=== PATIENT | male | born 1955 | race Caucasian/White ===

== ENCOUNTER 2023-10-04 14:17 | Emergency (ER) | payer OTHER, SELFPAY ==
--- NOTE | ~2023-10-04 | XR_ITS ---
EXAMINATION: XR CHEST CLINICAL INFORMATION: Shortness of breath COMPARISON: None available. TECHNIQUE: Frontal view of the chest was obtained. FINDINGS: Evidence of previous cardiac surgery. No significant abnormality is noted involving the heart, lungs, mediastinum, bony thorax or soft tissues. XR/XR chest 1V IMPRESSION: Unremarkable examination.
--- NOTE | 2023-10-04 14:22 | ECG_ITS ---
Test Reason : PAIN Blood Pressure : / mmHG Vent. Rate : 070 BPM Atrial Rate : 070 BPM P-R Int : 150 ms QRS Dur : 068 ms QT Int : 408 ms P-R-T Axes : 046 019 102 degrees QTc Int : 440 ms Normal sinus rhythm Abnormal QRS-T angle, consider primary T wave abnormality Abnormal ECG No previous ECGs available Referred By: Zeus Street Electronically Signed By:Manjeet Acosta
[2023-10-04 14:50] LABS: MANUAL DIFF FLAG NO
[2023-10-04 14:51] LABS: Basophils Percent Auto 0.2 % (0-2); Eosinophils Absolute Auto 0.5 X10*3/uL (0.0-0.4); Eosinophils Percent Auto 4.4 % (0-4); Hematocrit 43.5 % (42.0-52.0); Hemoglobin 14.5 g/dl (14.0-18.0); Imm Gran Abs Auto 0.03 X10*3/uL (0.00-0.03); Imm Gran Pct Auto 0.3 % (0.0-0.4); Lymphocytes Absolute Auto 1.7 X10*3/uL (1.2-4.9); Lymphocytes Percent Auto 16.7 % (20-40); Mean Corpuscular HGB Conc 33.3 g/dl (31.0-36.0); Mean Corpuscular Hemoglobin 30.6 pg (27.0-33.0); Mean Corpuscular Volume 91.8 fL (80.0-98.0); Mean Platelet Volume 11.8 fL (9.4-12.4); Monocytes Absolute Auto 0.7 X10*3/uL (0.1-1.2); Monocytes Percent Auto 6.6 % (2-11); Neutrophils Absolute Auto 7.3 x10*3/uL (2.0-8.3); Neutrophils Percent Auto 71.8 % (45-73); Platelet Count 176 X10*3/uL (160-400); Red Blood Count 4.74 X10*6/uL (4.60-5.80); Red Cell Distribution Width 13.1 % (11.0-16.0); White Blood Count 10.2 X10*3/uL (4.8-10.8)
[2023-10-04 14:57] VITALS: BP 166/81; PULSE 76; RESP 18; TEMP 36.5; O2SAT 97; BMI 31.9
[2023-10-04 14:57] LABS: INTERNATIONAL NORM RATIO 0.9 (0.9-1.1); Prothrombin Time 11.4 SEC (11.1-13.3)
[2023-10-04 15:13] LABS: B Type Natriuretic Peptide 19 pg/mL (<100)
[2023-10-04 15:14] LABS: Troponin-I High Sensitivity 3.1 ng/L (<3.5-35.0)
[2023-10-04 15:15] LABS: Alanine Aminotransferase 20 U/L (0-40); Alkaline Phosphatase 101 U/L (39-117); Anion Gap 15 (12-20); Aspartate Amino Transferase 20 U/L (5-37); Bilirubin Total 0.6 mg/dL (0.0-1.0); Blood Urea Nitrogen 21 mg/dL (9-16); Calcium 10.1 mg/dL (8.4-10.2); Carbon Dioxide 29 mmol/L (22-29); Chloride 100 mmol/L (96-108); Creatinine Clr Calc Pharmacy 57.5; Estimated Glomerular Filt Rate 53; Glucose Random 108 mg/dL (60-115); Lipase 35 U/L (8-78); Potassium 5.3 mmol/L (3.3-5.1); Sodium 139 mmol/L (135-145); Total Protein 7.9 g/dL (6.5-8.0)
--- NOTE | 2023-10-04 20:21 | ED.CHESTPAIN ---
HPI - Chest Pain General Chief Complaint: Chest Pain Stated Complaint: Chest pain, dizziness Time Seen by Provider: 10/04/23 20:18 Source: patient and family Mode of arrival: ambulatory Limitations: no limitations History of Present Illness HPI narrative: Patient history of hypertension coronary disease status post CABG complaining of right-sided chest discomfort with nonspecific dizziness since yesterday fell lightheaded whenever he stands up no shortness a breath was feeling very nauseated on arrival no vertiginous feeling no shortness a breath Related Data Previous Rx's ?Medication ?Instructions ?Recorded ondansetron 4 mg disintegrating 4 mg PO Q6-8H PRN nausea and 10/04/23 tablet vomiting #7 tabs Allergies Allergy/AdvReac Type Severity Reaction Status Date / Time No Known Allergies Allergy Verified 10/04/23 15:00 Review of Systems Review of Systems: Yes all other systems are reviewed and are negative [facility] Past Medical History Medical History (Updated 10/04/23 @ 23:58 by Kwaku Judd MD) Hypertension Surgical History (Updated 10/04/23 @ 23:54 by Kwaku Judd MD) Hx of CABG Social History Social History Smoked in Last 30 Days: No Use of substances other than those prescribed or required for medical reasons: No Advance Directives: Yes Advance Directives Information Provided: Yes Advance Directives on File: No Do you have a plan to hurt others: No Plan Physical Exam Vital Signs: Vital Signs: Last Vital Signs Temp 98.7 F 10/04/23 21:26 Pulse 76 10/04/23 22:56 Resp 16 10/04/23 22:56 BP 160/90 H 10/04/23 22:56 Pulse Ox 97 10/04/23 22:56 O2 Del Method Room Air 10/04/23 22:56 BMI result Body Mass Index 31.9 Appearance: Alert. Oriented X3. No acute distress. Eyes: PERRLA, No Nystagmus ENT: Pharynx normal. Oral Mucosa moist Neck: Normal inspection. Neck supple. CVS: Normal heart rate and rhythm. Pulses normal. Respiratory: No respiratory distress. Equal air entry bilateral, no wheezing/rales/rhonchi Abdomen: Soft and nontender. Bowel sounds are present, no mass palpable, no CVA tenderness Skin: Skin warm and dry. Normal skin color. Normal skin turgor. Extremities: No lower extremity edema. No calf tenderness Neuro: Oriented X 3. No motor deficit. No sensory deficit.No cerebellar signs , cranial nerves II-XII intact Medications Administered Discontinued Medications Generic Name Dose Route Start Last Admin Trade Name Freq PRN Reason Stop Dose Admin Ondansetron HCl 4 mg 10/04/23 21:06 10/04/23 21:35 Ondansetron Hcl 4 Mg/2 Ml Vial IVPUSH 10/04/23 21:07 4 mg ONCE ONE Administration Medical Decision Making Medical Decision Making [facility] Narrative: Patient with nonspecific dizziness with nausea workup since soon stable no orthostatic hypotension patient was given Zofran for nausea and feel much better after that will discharge patient home on Zofran patient was also given local no for high potassium Lab Data [facility] Lab Attestation statement: I reviewed the patient's lab results. 10/04/23 14:45 10/04/23 14:45 Labs: Lab Results 10/04/23 10/04/23 Range/Units 14:45 20:31 WBC 10.2 (4.8-10.8) X10*3/uL RBC 4.74 (4.60-5.80) X10*6/uL Hgb 14.5 (14.0-18.0) g/dl Hct 43.5 (42.0-52.0) % MCV 91.8 (80.0-98.0) fL MCH 30.6 (27.0-33.0) pg MCHC 33.3 (31.0-36.0) g/dl RDW 13.1 (11.0-16.0) % Plt Count 176 (160-400) X10*3/uL MPV 11.8 (9.4-12.4) fL Immature Gran % (Auto) 0.3 (0.0-0.4) % Neut % (Auto) 71.8 (45-73) % Lymph % (Auto) 16.7 L (20-40) % [place] % (Auto) 6.6 (2-11) % Eos % (Auto) 4.4 H (0-4) % Baso % (Auto) 0.2 (0-2) % Lymph # (Auto) 1.7 (1.2-4.9) X10*3/uL [place] # (Auto) 0.7 (0.1-1.2) X10*3/uL Eos # (Auto) 0.5 H (0.0-0.4) X10*3/uL Baso # (Auto) 0.0 (0.0-0.2) X10*3/uL Abs Immat Gran (auto) 0.03 (0.00-0.03) X10*3/uL Absolute Neuts (auto) 7.3 (2.0-8.3) x10*3/uL Absolute Nucleated RBC 0.000 (0.0-0.012) X10*3/uL Nucleated RBC % (auto) 0.0 (0.0-0.2) /100WBC PT 11.4 (11.1-13.3) SEC INR 0.9 (0.9-1.1) Sodium 139 (135-145) mmol/L Potassium 5.3 H (3.3-5.1) mmol/L Chloride 100 (96-108) mmol/L Carbon Dioxide 29 (22-29) mmol/L Anion Gap 15 (12-20) BUN 21 H (9-16) mg/dL Creatinine 1.33 (0.5-1.4) mg/dL Estim Creat Clear Calc 57.5 Estimated GFR 53 Random Glucose 108 (60-115) mg/dL Calcium 10.1 (8.4-10.2) mg/dL Total Bilirubin 0.6 (0.0-1.0) mg/dL AST 20 (5-37) U/L ALT 20 (0-40) U/L Alkaline Phosphatase 101 (39-117) U/L Troponin I High Sens 3.1 3.8 (<3.5-35.0) ng/L B-Natriuretic Peptide 19 (<100) pg/mL Total Protein 7.9 (6.5-8.0) g/dL Albumin 4.0 (3.5-5.0) g/dL Lipase 35 (8-78) U/L Independent Interpretation I performed an independent interpretation of an: EKG Interpretation: Normal sinus rhythm normal intervals no acute ST-T changes no acute ischemia Discharge Plan Discharge Clinical Impression: Chest pain, Dizziness Patient Disposition: Home, Self-Care Instructions: Chest Pain (ED), Dizziness (ED) Additional Instructions: Drink plenty of fluids Medicine for nausea as prescribed Follow the PCP Your potassium was 5.3 which is slightly higher than normal do not eat food containing high amount of potassium Prescriptions: New ondansetron 4 mg tablet,disintegrating 4 mg PO Q6-8H PRN (Reason: nausea and vomiting) Qty: 7 0RF Print Language: Welsh
[2023-10-04 20:59] LABS: Troponin-I High Sensitivity 3.8 ng/L (<3.5-35.0)
[2023-10-04 21:26] VITALS: BP 168/87; PULSE 64; RESP 16; TEMP 37.1; O2SAT 98
[2023-10-04 21:29] VITALS: BP 165/85; PULSE 64
[2023-10-04 21:30] VITALS: BP 157/80; PULSE 80
[2023-10-04 21:32] VITALS: BP 148/77; PULSE 90
[2023-10-04] MEDS: ondansetron HCL 4 MG/2 ML VIAL IVPUSH (21:35)
--- NOTE | 2023-10-04 21:38 | PC.NURSE ---
Pt medicated per jul. Plan of care ongoing.
--- NOTE | 2023-10-04 22:38 | PC.NURSE ---
Pts daughter is leaving and would like someone to call her w/ updates @ [phone]
[2023-10-04 22:56] VITALS: BP 160/90; PULSE 76; RESP 16; O2SAT 97
[2023-10-05] MEDS: Sodium Zirconium Cyclosilicate 10 GM POWD.PACK PO (00:11)
[2023-10-05 00:17] VITALS: BP 160/85; PULSE 76; RESP 16; TEMP 37; O2SAT 97
== END 2023-10-05 00:20 | disposition home or self-care (01) ==
PROVIDERS: Physician Assistant; Emergency Provider Internal Medicine; PCP Physician Assistant Medical
DX: R07.9 Chest pain, unspecified (principal); R42 Dizziness and giddiness; I10 Essential (primary) hypertension; Z95.1 Presence of aortocoronary bypass graft
CPT/HCPCS: 36415; 71045; 80053; 83690; 83880; 84484; 85025; 85610; 93005; 96374; 99284; 99285; J2405

== ENCOUNTER → 2023-10-04 14:22 | Outpatient (BNV) | payer OTHER, SELFPAY | PROVIDERS: Emergency Provider Internal Medicine; PCP Physician Assistant Medical; Visit Provider Internal Medicine Cardiovascular Disease | DX: R94.31 Abnormal electrocardiogram [ECG] [EKG] (principal) | CPT/HCPCS: 93010 ==

== ENCOUNTER 2024-03-28 17:43 | Emergency (ER) | payer OTHER, SELFPAY ==
--- NOTE | ~2024-03-28 | CT_ITS ---
EXAMINATION: CT HEAD WITHOUT CONTRAST CLINICAL INFORMATION: Near syncope. Dizziness. COMPARISON: None available. TECHNIQUE: Contiguous axial imaging was performed from the skull base to vertex without intravenous administration of contrast. This CT examination was performed using dose optimization techniques as appropriate, variously including the following: *Automated exposure control *Adjustment of mA and/or kV according to patient size (this includes techniques or standardized protocols for targeted exams where dose is matched to indication/reason for exam; i.e. extremities or head) *Use of iterative reconstruction technique DLP: 719 mGy-cm FINDINGS: No acute intracranial hemorrhage. No evidence of acute/subacute cerebral or cerebellar infarction. There is moderate microvascular ischemic change. There are chronic lacunar infarctions within the left basal ganglia, left soliz radiata, and right thalamus. There is no midline shift or mass effect. There is no extra-axial fluid collection. The ventricles are normal in size. The calvarium is intact. The orbits are symmetric and within normal limits. The visualized paranasal sinuses and mastoid air cells are clear. CT/CT head/brain wo IV con IMPRESSION: No acute intracranial pathology. Moderate microvascular ischemic change. Chronic lacunar infarctions within the left basal ganglia, left soliz radiata, and right thalamus. Electronically signed by: Betito Hanson DO 03/28/2024 10:15 PM KEYANNA
--- NOTE | ~2024-03-28 | CT_ITS ---
EXAMINATION: CT ANGIOGRAM OF THE CHEST WITH AND WITHOUT CONTRAST (CT PULMONARY ANGIOGRAM FOR PE) CLINICAL INFORMATION: Acute shortness of breath. COMPARISON: Chest radiograph from 10/04/2023. TECHNIQUE: Prior to contrast administration, noncontrast localization images were obtained. Subsequently, multidetector volumetric imaging was performed from the thoracic inlet to below the diaphragms following the administration of 65 mL Omnipaque 350 intravenous contrast. No contrast reaction reported. Sagittal, coronal, and MIP oblique sagittal reformatted images were obtained on the CT workstation, uploaded to PACS, and reviewed. This CT examination was performed using dose optimization techniques as appropriate, variously including the following: *Automated exposure control. *Adjustment of mA and/or kV according to patient size (this includes techniques or standardized protocols for targeted exams where dose is matched to indication/reason for exam; i.e. extremities or head). *Use of iterative reconstruction technique. DLP: 316 mGy-cm FINDINGS: QUALITY OF STUDY/CONTRAST BOLUS: Satisfactory. PULMONARY ARTERIES: No central or segmental pulmonary emboli. THORACIC AORTA: The thoracic aorta is of normal contour and caliber. No evidence of thoracic aortic aneurysm or dissection. LUNG: No focal consolidation, nodules, or masses. PLEURA: No pleural effusion or pneumothorax. 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 Normal heart size. No pericardial effusion. No hilar or mediastinal lymphadenopathy. No evidence of septal bowing or right heart strain. Coronary artery calcifications: Present - advanced. CHEST WALL/AXILLA: No axillary or internal mammary lymphadenopathy. OSSEOUS STRUCTURES: No acute or suspicious osseous abnormality. 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 UPPER ABDOMEN: No demonstrated significant abnormalities of the visualized upper abdomen. No reflux of contrast into the hepatic veins to suggest elevated right heart pressures. CT/CT angio chest PE protocol IMPRESSION: 1. No evidence of pulmonary embolism. 2. No demonstrated acute pulmonary abnormalities. VTE: negative. Electronically signed by: Manjinder Hassan DO 03/29/2024 04:03 AM EST
[2024-03-28 17:56] VITALS: BP 199/81; PULSE 65; RESP 18; TEMP 36.7; O2SAT 96; BMI 31.0
--- NOTE | 2024-03-28 17:58 | ECG_ITS ---
Test Reason : SYNCOPE Blood Pressure : / mmHG Vent. Rate : 065 BPM Atrial Rate : 065 BPM P-R Int : 170 ms QRS Dur : 072 ms QT Int : 438 ms P-R-T Axes : 004 029 111 degrees QTc Int : 455 ms Normal sinus rhythm Nonspecific T wave abnormality Abnormal ECG When compared with ECG of 04-OCT-2023 14:36, No significant change was found Referred By: Ritchei Valencia Electronically Signed By:HIEU NAIK MD
--- NOTE | 2024-03-28 18:00 | ED_ITS ---
HPI - General Adult General Chief complaint: Dyspnea Stated complaint: sob/dizzy/hx of heart/strokes Time Seen by Provider: 03/29/24 00:53 Source: patient and family Mode of arrival: ambulatory Limitations: no limitations History of Present Illness ED Provider: shabana PANDYA narrative: Patient is 68 years old with history of hypertension no known lung condition at history of CVA in the past used to be on lisinopril change to metoprolol about 3 weeks ago blood pressure at home is around 160/80 for last 4 days patient has been feeling increased shortness of breath on mild exertion no chest pain on arrival patient's blood pressure was 199/81 repeat blood pressure 204/101 patient denied any sleep apnea no chest no palpitation no calf pain no cough fever or chills Related Data Previous Rx's ?Medication ?Instructions ?Recorded ondansetron 4 mg disintegrating 4 mg PO Q6-8H PRN nausea and 10/04/23 tablet vomiting #7 tabs amlodipine 5 mg tablet 5 mg PO DAILY #30 tabs 03/29/24 Allergies Allergy/AdvReac Type Severity Reaction Status Date / Time No Known Allergies Allergy Verified 03/28/24 18:00 Review of Systems 2 Review of Systems: Yes all other systems are reviewed and are negative PMFSH Past Medical History Medical History Hypertension Surgical History Hx of CABG Social History Social History Alcohol intake: current Alcohol intake frequency: a few times a month Smoked in Last 30 Days: No Use of substances other than those prescribed or required for medical reasons: No Advance Directives: Yes Advance Directives on File: No Physical Exam ED Vital Signs: Vital Signs - 24 hr 03/28/24 17:56 03/28/24 21:37 03/29/24 00:40 Temperature 98.1 F 98.6 F 97.7 F Pulse Rate 65 66 58 Respiratory Rate 18 18 18 Blood Pressure 199/81 H 196/90 H 195/99 H Pulse Oximetry 96 94 96 Oxygen Delivery Method Room Air Room Air Room Air 03/29/24 01:29 03/29/24 01:58 03/29/24 02:54 Temperature Pulse Rate 63 60 Respiratory Rate 17 Blood Pressure 204/101 H 200/98 H 184/94 H Pulse Oximetry 98 Oxygen Delivery Method Room Air 03/29/24 04:27 03/29/24 05:52 Temperature 98.6 F Pulse Rate 64 65 Respiratory Rate 17 19 Blood Pressure 179/94 H 172/94 H Pulse Oximetry 99 96 Oxygen Delivery Method Room Air Room Air BMI result Body Mass Index 31.0 Appearance: Alert. Oriented X3. No acute distress. Eyes: PERRLA, No Nystagmus ENT: Pharynx normal. Oral Mucosa moist Neck: Normal inspection. Neck supple. CVS: Normal heart rate and rhythm. Pulses normal. Respiratory: No respiratory distress. Equal air entry bilateral, no wheezing/rales/rhonchi Abdomen: Soft and nontender. Bowel sounds are present, no mass palpable, no CVA tenderness Skin: Skin warm and dry. Normal skin color. Normal skin turgor. Extremities: No lower extremity edema. No calf tenderness Neuro: Oriented X 3. No motor deficit. No sensory deficit.No cerebellar signs , cranial nerves II-XII intact Course Course Course Narrative: RME: 68 yold male presents to the ED for near syncopal episodes, chest pain, and SOB. Patient states this episode occurred earlier in the week. We will talk witnessed by daughter. Both times daughter car patient before he fell to the ground. Daughter states both sides patient has turned purple but states patient never lost consciousness. Negative for any neuro deficits. Labs EKG ordered. Medications Administered Discontinued Medications Generic Name Dose Route Start Last Admin Trade Name Freq PRN Reason Stop Dose Admin Amlodipine Besylate 5 mg 03/29/24 01:15 03/29/24 01:29 Amlodipine Besylate 5 Mg Tablet PO 03/29/24 01:16 5 mg ONCE ONE Administration Protocol Iohexol 65 ml 03/29/24 01:53 03/29/24 01:53 Iohexol 350 Mg/Ml 100 Ml Infus..Btl IV 03/29/24 01:54 65 ml ONCE ONE Administration Nitroglycerin 1 inch 03/29/24 01:32 03/29/24 01:58 Nitroglycerin 2 % Oint 1 Gm Packet TRANSDERMA 03/29/24 01:33 1 inch ONCE ONE Administration Medical Decision Making Medical Decision Making MDM Narrative: Patient exertional shortness of breath etiology not very clear 2 sets of cardiac enzymes negative D-dimer slightly elevated CTA chest negative for PE or right ventricular strain EKG without any ischemic changes patient is saturating 96% at room air patient advised to follow with real estate coordinator for further evaluation Differential Diagnosis Differential Diagnoses: The differential diagnosis associated with the presentation includes Admission/Observation Consideration of admission/observation: Escalation of care including admission/observation considered Lab Data MDM Lab Attestation statement: I reviewed the patient's lab results. 03/28/24 18:14 03/28/24 18:14 Labs: Lab Results 03/28/24 03/29/24 Range/Units 18:14 01:25 WBC 10.4 (4.8-10.8) X10*3/uL RBC 4.15 L (4.60-5.80) X10*6/uL Hgb 12.5 L (14.0-18.0) g/dl Hct 39.4 L (42.0-52.0) % MCV 94.9 (80.0-98.0) fL MCH 30.1 (27.0-33.0) pg MCHC 31.7 (31.0-36.0) g/dl RDW 13.2 (11.0-16.0) % Plt Count 173 (160-400) X10*3/uL MPV 12.3 (9.4-12.4) fL Immature Gran % (Auto) 0.3 (0.0-0.4) % Neut % (Auto) 64.4 (45-73) % Lymph % (Auto) 17.5 L (20-40) % [place] % (Auto) 10.1 (2-11) % Eos % (Auto) 7.3 H (0-4) % Baso % (Auto) 0.4 (0-2) % Lymph # (Auto) 1.8 (1.2-4.9) X10*3/uL [place] # (Auto) 1.1 (0.1-1.2) X10*3/uL Eos # (Auto) 0.8 H (0.0-0.4) X10*3/uL Baso # (Auto) 0.0 (0.0-0.2) X10*3/uL Abs Immat Gran (auto) 0.03 (0.00-0.03) X10*3/uL Absolute Neuts (auto) 6.7 (2.0-8.3) x10*3/uL Absolute Nucleated RBC 0.000 (0.0-0.012) X10*3/uL Nucleated RBC % (auto) 0.0 (0.0-0.2) /100WBC PT 11.7 (10.9-12.4) SEC INR 1.0 (0.9-1.1) APTT 30.0 (26.0-36.8) SEC D-Dimer High Sensitivty 308 NG/ML Sodium 142 (135-145) mmol/L Potassium 4.6 (3.3-5.1) mmol/L Chloride 106 (96-108) mmol/L Carbon Dioxide 29 (22-29) mmol/L Anion Gap 12 (12-20) BUN 18 H (9-16) mg/dL Creatinine 1.03 (0.5-1.4) mg/dL Estim Creat Clear Calc 73.3 Estimated GFR > 60 Random Glucose 110 (60-115) mg/dL Calcium 9.2 D (8.4-10.2) mg/dL Total Bilirubin 0.3 (0.0-1.0) mg/dL AST 19 (5-37) U/L ALT 15 (0-40) U/L Alkaline Phosphatase 82 (39-117) U/L Troponin I High Sens 6.0 D 5.1 (<3.5-35.0) ng/L B-Natriuretic Peptide 42 (<100) pg/mL Total Protein 6.8 (6.5-8.0) g/dL Albumin 3.6 (3.5-5.0) g/dL Independent Interpretation I performed an independent interpretation of an: EKG Interpretation: Normal sinus rhythm heart rate 65 beats per minute normal interval nonspecific ST wave changes no acute ST-T changes no acute ischemia Radiology Impression Discussion of test interpretation with radiology: I have reviewed the radiologist's reading. Radiologist Impression: Head CT negative for acute Discharge Plan Discharge Clinical Impression: Essential hypertension, Dyspnea Patient Disposition: Home, Self-Care Instructions: Dyspnea (ED), Hypertension (ED) Additional Instructions: Continue your medications Your blood pressure was elevated today Start taking amlodipine 5 mg daily Follow up with your real estate coordinator for further evaluation Prescriptions: New amlodipine 5 mg tablet 5 mg PO DAILY Qty: 30 0RF No Action ondansetron 4 mg tablet,disintegrating 4 mg PO Q6-8H PRN (Reason: nausea and vomiting) Qty: 7 0RF Interventions: ED Discharge Assessment Last Done: 03/29/24 05:52 Discharge Date/Time: 03/29/24 05:53 Print Language: Palestinian
[2024-03-28 18:20] LABS: MANUAL DIFF FLAG NO
[2024-03-28 18:26] LABS: Basophils Percent Auto 0.4 % (0-2); Eosinophils Absolute Auto 0.8 X10*3/uL (0.0-0.4); Eosinophils Percent Auto 7.3 % (0-4); Hematocrit 39.4 % (42.0-52.0); Hemoglobin 12.5 g/dl (14.0-18.0); Imm Gran Abs Auto 0.03 X10*3/uL (0.00-0.03); Imm Gran Pct Auto 0.3 % (0.0-0.4); Lymphocytes Absolute Auto 1.8 X10*3/uL (1.2-4.9); Lymphocytes Percent Auto 17.5 % (20-40); Mean Corpuscular HGB Conc 31.7 g/dl (31.0-36.0); Mean Corpuscular Hemoglobin 30.1 pg (27.0-33.0); Mean Corpuscular Volume 94.9 fL (80.0-98.0); Mean Platelet Volume 12.3 fL (9.4-12.4); Monocytes Absolute Auto 1.1 X10*3/uL (0.1-1.2); Monocytes Percent Auto 10.1 % (2-11); Neutrophils Absolute Auto 6.7 x10*3/uL (2.0-8.3); Neutrophils Percent Auto 64.4 % (45-73); Platelet Count 173 X10*3/uL (160-400); Red Blood Count 4.15 X10*6/uL (4.60-5.80); Red Cell Distribution Width 13.2 % (11.0-16.0); White Blood Count 10.4 X10*3/uL (4.8-10.8)
[2024-03-28 18:33] LABS: Prothrombin Time 11.7 SEC (10.9-12.4)
[2024-03-28 18:40] LABS: Alanine Aminotransferase 15 U/L (0-40); Albumin Level 3.6 g/dL (3.5-5.0); Alkaline Phosphatase 82 U/L (39-117); Anion Gap 12 (12-20); Aspartate Amino Transferase 19 U/L (5-37); Bilirubin Total 0.3 mg/dL (0.0-1.0); Blood Urea Nitrogen 18 mg/dL (9-16); Calcium 9.2 mg/dL (8.4-10.2); Carbon Dioxide 29 mmol/L (22-29); Chloride 106 mmol/L (96-108); Creatinine Clr Calc Pharmacy 73.3; Estimated Glomerular Filt Rate > 60; Glucose Random 110 mg/dL (60-115); Potassium 4.6 mmol/L (3.3-5.1); Sodium 142 mmol/L (135-145); Total Protein 6.8 g/dL (6.5-8.0)
[2024-03-28 18:41] LABS: B Type Natriuretic Peptide 42 pg/mL (<100)
[2024-03-28 21:37] VITALS: BP 196/90; PULSE 66; RESP 18; TEMP 37; O2SAT 94
--- NOTE | 2024-03-28 21:42 | PC.NURSE ---
Pt ZOE changed to level 3 based on work up at this time
[2024-03-29 00:40] VITALS: BP 195/99; PULSE 58; RESP 18; TEMP 36.5; O2SAT 96
[2024-03-29 01:16] LABS: D Dimer High Sensitivity 308 NG/ML
--- NOTE | 2024-03-29 01:20 | MHC.EDTECH ---
Patient changed into hospital attire,placed on the hall monitor,vitals taken,BP is elevated RN/MD aware
[2024-03-29 01:29] VITALS: BP 204/101
[2024-03-29] MEDS: amLODIPine Besylate 5 MG TABLET PO (01:29)
[2024-03-29 01:48] LABS: Troponin-I High Sensitivity 5.1 ng/L (<3.5-35.0)
[2024-03-29] MEDS: iohexoL 350 MG/ML 100 ML INFUS..BTL 65 ML IV (01:53)
[2024-03-29 01:58] VITALS: BP 200/98; PULSE 63
[2024-03-29] MEDS: Nitroglycerin 2 % Oint 1 GM Packet 1 INCH TRANSDERMA (01:58)
--- NOTE | 2024-03-29 02:19 | PC.NURSE ---
this rn assumed care of pt, pt a&ox4, respirations even and unlabored. pt daughter at bedside reports last filiberto pt had syncopal episode with increasing shortness of breath x5 days. pt daughter also reports pt has had hypertension and is on medication they are unsure about. pt denies any recent travel at this time. provider aware of bp. pt medicated per jul, 20G placed in right forearm, labs obtained. sinus [place]ane on tele 58-60bpm.
[2024-03-29 02:54] VITALS: BP 184/94; PULSE 60; RESP 17; O2SAT 98
--- NOTE | 2024-03-29 02:54 | PC.NURSE ---
provider aware of pt bp at this time, orders as follow.
--- NOTE | 2024-03-29 04:17 | PC.NURSE ---
pt ambulatory to bathroom with steady gait, no acute distress noted
[2024-03-29 04:27] VITALS: BP 179/94; PULSE 64; RESP 17; O2SAT 99
[2024-03-29 05:52] VITALS: BP 172/94; PULSE 65; RESP 19; TEMP 37; O2SAT 96
== END 2024-03-29 05:53 | disposition home or self-care (01) ==
PROVIDERS: Physician Assistant; Emergency Provider Internal Medicine; PCP Physician Assistant Medical
DX: I10 Essential (primary) hypertension (principal); R06.00 Dyspnea, unspecified; R06.02 Shortness of breath; Z79.899 Other long term (current) drug therapy
CPT/HCPCS: 36415; 70450; 71275; 80053; 83880; 84484; 85025; 85379; 85610; 85730; 93005; 99285; Q9967

== ENCOUNTER → 2024-03-28 17:58 | Outpatient (BNV) | payer OTHER, SELFPAY | PROVIDERS: Emergency Provider Internal Medicine; PCP Physician Assistant Medical; Visit Provider Internal Medicine Cardiovascular Disease | DX: R55 Syncope and collapse (principal); R94.31 Abnormal electrocardiogram [ECG] [EKG] | CPT/HCPCS: 93010 ==